=== PATIENT | female | born 1990 | race Caucasian/White ===

== ENCOUNTER 2016-11-02 07:34 | Emergency (ER) | payer MEDICAID ==
[~2016-11-02] VITALS: Ht 167.6 cm; Wt 59.0 kg
[2016-11-02 07:58] VITALS: BP 101/57
[2016-11-02 08:02] LABS: Urine Bilirubin Negative (Negative); Urine Blood Negative /uL (Negative); Urine Color Yellow (Yellow); Urine Glucose Normal (Normal); Urine Ketone Negative (Negative); Urine Nitrite Negative (Negative); Urine RBC <1 /hpf (0 - 4); Urine Squamous Epithelial Cell FEW /hpf (<5); Urine Urobilinogen Normal (Negative)
[2016-11-02] MEDS ORDERED: KETOROLAC TROMETH 60MG/2ML VIAL IM ONE (08:15)
== END 2016-11-02 09:41 | disposition home or self-care (01) ==
LOC: ER 07:34
DX: M79.601 Pain in right arm (principal); F17.210 Nicotine dependence, cigarettes, uncomplicated; Z88.0 Allergy status to penicillin
CPT/HCPCS: 73030; 81001; 81025; 96372; 99285; J1885